=== PATIENT | female | born 1970 | race American Indian/Alaskan Native ===

== ENCOUNTER 2016-09-12 10:41 | Outpatient (CLI) | payer OTHER ==
--- NOTE | 2016-09-12 11:46 | Ultrasound Report ---
RIGHT DIGITAL DIAGNOSTIC MAMMOGRAM and RIGHT BREAST ULTRASOUND: 09/12/16 10:41:00 CLINICAL: Recalled for asymmetries. COMPARISON:08/09/16 screening FINDINGS: ML and spot compression MLO and CC views were performed and demonstrate persistent circumscribed asymmetries. Ultrasound of the right breast (including all four quadrants and the retroareolar area) was performed. A benign cyst at 1 o'clock 1 cm from the nipple measures 2.9 x 2.1 x 1.2 cm and correlates with an upper inner asymmetry. A benign cyst at 8 o'clock 3 cm from the nipple measures 3.5 x 2.8 x 1.5 cm and correlates with a lower outer asymmetry. A cyst at 10 o'clock 2 cm from the nipple measures 1.2 x 1.3 x 0.8 cm. Clustered microcysts at 11 o'clock 1 cm from the nipple measures 7 x 7 x 5 mm. No solid mass or shadowing. IMPRESSION: Benign cysts right breast. BI-RADS CATEGORY: 2 - - Benign RECOMMENDATION: Routine mammographic screening in one year. ACR BI-RADS MAMMOGRAPHIC CODES: 0 = Needs additional imaging evaluation; 1 = Negative; 2 = Benign; 3 = Probably benign; 4 = Suspicious; 5 = Malignant; 6 = Known biopsy-proven malignancy COMMENT: 1. Dense breast tissue, i.e., adenosis, fibrocystic changes, etc., may obscure an underlying neoplasm. 2. Approximately 10% of cancers are not detected with mammography. 3. A negative mammography report should not delay biopsy if a clinically suspicious mass is present. COMMENT: Patient follow-up letters are generated via our [employer] application.
== END 2016-09-12 10:42 | disposition home or self-care (01) ==
LOC: SPVIMAG 10:41
PROVIDERS: ATTEND Surgery
DX: N60.01 Solitary cyst of right breast (principal); N63 Unspecified lump in breast; N64.4 Mastodynia
CPT/HCPCS: 76641; G0206